=== PATIENT | female | born 1995 | race Caucasian/White ===

== ENCOUNTER → 2017-06-26 23:28 | Observation (INO) ==
[2017-06-26 22:47] VITALS: BP 131/76
--- NOTE | 2017-06-26 23:11 | OB/GYN Progress Note ---
Date of Encounter: 06/26/17 Time of Encounter: 23:09 - Assessment and Plan (1) Vaginal bleeding in Current Visit: Yes Status: Acute Monitor fetus externally Complete urinalysis- negative for UTI Discharged home with when to notify provider and return to triage instructions. (2) 30 weeks gestation of Current Visit: Yes Status: Acute Subjective - Subjective Interval history: 22-year-old presenting at 30 weeks and 6 days with concern for vaginal bleeding. Patient states this afternoon she wiped while at work and noticed a small, nickel sized of light pink blood on toilet paper. Patient denies any bleeding otherwise at this . She denies any fluid leakage. She denies any cramping or vaginal discharge. Patient states she did follow up with [facility] for increased alpha-fetoprotein but they were not concerned and discharged her from their service. Patient's is otherwise been uncomplicated. Patient sees an outside OB. Antepartum ROS: vaginal bleeding, no loss of fluid, no movement normal, no contractions Objective - Vital Signs Vital Signs: Vital Signs Temp Pulse Resp BP 06/26/17 22:36 98.6 F 110 16 131/76 Intake and Output 06/26/17 06/26/17 06/26/17 07:59 15:59 23:59 Other: Weight 73.8 kg Patient Weight 06/26/17 23:59 Weight 73.8 kg - Exam FHR: auscultation normal FHR comments: Baseline 125 Auscultation: bilateral: normal Abdomen: Present: normal appearance, soft, gravid
[2017-06-26 23:13] LABS: Bilirubin,Urine Negative (Negative); Blood,Urine Negative (Negative); Clarity,Urine Clear (Clear); Color,Urine Yellow (Yellow); Glucose,Urine (UA) Normal (Normal); Ketones,Urine Negative (Negative); Leukocyte Esterase,Urine Negative (Negative); Nitrite,Urine Negative (Negative); PH,Urine 6.5 pH Units (5.0-8.0); Protein,Urine Trace mg/dL (Neg-Trace); Specific Gravity,Urine 1.028 (1.010-1.025); Urobilinogen,Urine Normal (Normal)
[2017-06-26 23:15] LABS: Bacteria,Urine None Seen per hpf (None-Few); Hyaline Casts,Urine None Seen per lpf (None-Few); Squamous Epithelial Cell,Urine Many per lpf (None-Few)
[2017-06-26 23:19] LABS: Amphetamine Screen,Urine Negative ng/mL (Cutoff=1000); Barbiturate Screen,Urine Negative ng/mL (Cutoff=200); Benzodiazepines Screen,Urine Negative ng/mL (Cutoff=200); Cannabinoid Screen,Urine Positive ng/mL (Cutoff = 50); Cocaine Screen,Urine Negative ng/mL (Cutoff= 300); Opiate Screen,Urine Negative ng/mL (Cutoff=300); Phencyclidine Screen,Urine Negative ng/mL (Cutoff=25)
== END | disposition home or self-care (01) ==
LOC: 1NENULAB
PROVIDERS: ADMIT Advanced Practice Midwife; ATTEND Advanced Practice Midwife